=== PATIENT | female | born 1945 | race Caucasian/White ===

== ENCOUNTER 2017-04-25 10:40 | Emergency (ER) | payer MEDICARE, BC ==
[~2017-04-25] VITALS: Ht 165.1 cm; Wt 70.5 kg
[2017-04-25 10:47] VITALS: BP 174/77; PULSE 62; RESP 17; TEMP 98; O2SAT 95
[2017-04-25] MEDS ORDERED: ESTR2TAB PO (11:11)
[2017-04-25] MEDS ORDERED: BUSP5TAB PO (11:11)
[2017-04-25] MEDS ORDERED: MIDO2.5T PO (11:11)
[2017-04-25] MEDS ORDERED: REME15TA PO (11:11)
[2017-04-25] MEDS ORDERED: OXYB5TAB10 PO (11:11)
[2017-04-25] MEDS ORDERED: LEXA10TA PO (11:12)
[2017-04-25] MEDS ORDERED: PANT20 PO (11:12)
[2017-04-25] MEDS ORDERED: SODIUM CHLORIDE 0.9% FLUSH 10 ML FLUSH IVF PRN (11:30)
[2017-04-25] MEDS ORDERED: ASPIRIN 81 MG CHEW TAB PO ONE (11:30)
[2017-04-25 11:54] LABS: WHITE BLOOD COUNT 6.7 TH/MM3 (4.0-11.0)
[2017-04-25 11:55] LABS: AUTOMATED NEUTROPHIL # 4.4 TH/MM3 (1.8-7.7); BASOPHIL # 0.1 TH/MM3 (0-0.2); EOSINOPHIL # 0.1 TH/MM3 (0-0.4); EOSINOPHIL % 1.3 % (0.0-4.0); HEMO FLAGS DIFF FINAL; LYMPH % 25.6 % (9.0-44.0); LYMPHOCYTE # 1.7 TH/MM3 (1.0-4.8); MEAN CORPUSCULAR HEMOGLOBIN 33.4 PG (27.0-34.0); MEAN CORPUSCULAR HGB CONC 33.8 % (32.0-36.0); NEUT % 66.1 % (16.0-70.0); PLATELET COUNT 229 TH/MM3 (150-450); RED BLOOD COUNT 3.84 MIL/MM3 (4.00-5.30); RED CELL DISTRIBUTION WIDTH 12.5 % (11.6-17.2)
[2017-04-25 12:01] LABS: APTT (PATIENT) 24.1 SEC (24.3-30.1); INTERNATIONAL NORMALIZED RATIO 0.9 RATIO
--- NOTE | 2017-04-25 12:13 | PD ---
HPI Chief Complaint: Chest Pain Time Seen by Provider: 11:09 Travel History International Travel<30 days: No Contact w/Intl Traveler<30days: No Traveled to known affect area: No History of Present Illness HPI Patient is a 72-year-old female presents emergency Department with a choking sensation in the middle of her chest started about 0400 this morning, she states it awoke her from a sound sleep lasted about 2 minutes and she felt like she was going to while was occurring. She had some shortness of breath and some mild dizziness and the pain went down her right arm she says afterwards it nearly resolved, she complains only of a mild choking sensation in her chest at this time. Denies a personal history of heart disease and versus high blood pressure and high cholesterol. Nonsmoker. She states that she had a stress test about a year ago which was normal. [facility] Past Medical History Cardiovascular Problems: Yes Diminished Hearing: No Hypertension: Yes Influenza Vaccination: No ?: Not Past Surgical History Hysterectomy: Yes Social History Alcohol Use: No Tobacco Use: No Substance Use: No Allergies-Medications (Allergen,Severity, Reaction): Coded Allergies: acetaminophen (Verified Allergy, Severe, Restlessness, 04/25/17) codeine (Verified Allergy, Severe, Restlessness, 04/25/17) Reported Meds & Prescriptions Reported Meds & Active Scripts Active Reported Protonix (Pantoprazole Sodium) 20 Mg Tab 20 Mg PO DAILY Lexapro (Escitalopram Oxalate) 10 Mg Tab 10 Mg PO DAILY Ditropan (Oxybutynin Chloride) 5 Mg Tab 5 Mg PO DAILY Estradiol 2 Mg Tab 2 Mg PO DAILY Remeron (Mirtazapine) 15 Mg Tab 15 Mg PO HS Buspirone (Buspirone HCl) 5 Mg Tab 5 Mg PO DAILY Midodrine 2.5 Mg Tab 2.5 Mg PO TID Review of Systems Except as stated in HPI: all other systems reviewed are Neg Physical Exam Narrative GENERAL: Well-developed well-nourished no obvious distress SKIN: Focused skin assessment warm/dry. HEAD: Atraumatic. Normocephalic. EYES: Pupils equal and round. No scleral icterus. No injection or drainage. ENT: No nasal bleeding or discharge. Mucous membranes pink and moist. NECK: Trachea midline. No JVD. CARDIOVASCULAR: Regular rate and rhythm. No murmur appreciated. RESPIRATORY: No accessory muscle use. Clear to auscultation. Breath sounds equal bilaterally. GASTROINTESTINAL: Abdomen soft, non-tender, nondistended. Hepatic and splenic margins not palpable. MUSCULOSKELETAL: No obvious deformities. No clubbing. No cyanosis. No edema. NEUROLOGICAL: Awake and alert. No obvious cranial nerve deficits. Motor grossly within normal limits. Normal speech. PSYCHIATRIC: Appropriate mood and affect; insight and judgment normal. Data Data Last Documented VS Vital Signs Date Time Temp Pulse Resp B/P (MAP) Pulse Ox O2 Delivery O2 Flow Rate FiO2 04/25/17 13:43 61 17 154/87 (109) 98 04/25/17 13:42 Room Air 04/25/17 10:47 98.0 Orders Orders Electrocardiogram (04/25/17 11:24) Ckmb (Isoenzyme) Profile (04/25/17 11:24) Complete Blood Count With Diff (04/25/17 11:24) Comprehensive Metabolic Panel (04/25/17 11:24) Magnesium (Mg) (04/25/17 11:24) Prothrombin Time / Inr (Pt) (04/25/17 11:24) Act Partial Throm Time (Ptt) (04/25/17 11:24) Troponin I (04/25/17 11:24) Chest, Single Ap (04/25/17 11:24) Ecg Monitoring (04/25/17 11:24) Iv Access Insert/Monitor (04/25/17 11:24) Oximetry (04/25/17 11:24) Oxygen Administration (04/25/17 11:24) Aspirin Chew (Aspirin Chew) (04/25/17 11:30) Sodium Chloride 0.9% Flush (Ns Flush) (04/25/17 11:30) Labs Laboratory Tests Test 04/25/17 11:32 White Blood Count 6.7 TH/MM3 Red Blood Count 3.84 MIL/MM3 Hemoglobin 12.8 GM/DL Hematocrit 38.0 % Mean Corpuscular Volume 99.0 FL Mean Corpuscular Hemoglobin 33.4 PG Mean Corpuscular Hemoglobin Concent 33.8 % Red Cell Distribution Width 12.5 % Platelet Count 229 TH/MM3 Mean Platelet Volume 8.6 FL Neutrophils (%) (Auto) 66.1 % Lymphocytes (%) (Auto) 25.6 % Monocytes (%) (Auto) 6.0 % Eosinophils (%) (Auto) 1.3 % Basophils (%) (Auto) 1.0 % Neutrophils # (Auto) 4.4 TH/MM3 Lymphocytes # (Auto) 1.7 TH/MM3 Monocytes # (Auto) 0.4 TH/MM3 Eosinophils # (Auto) 0.1 TH/MM3 Basophils # (Auto) 0.1 TH/MM3 CBC Comment DIFF FINAL Differential Comment Prothrombin Time 10.0 SEC Prothromb Time International Ratio 0.9 RATIO Activated Partial Thromboplast Time 24.1 SEC Blood Urea Nitrogen 15 MG/DL Creatinine 0.85 MG/DL Random Glucose 101 MG/DL Total Protein 6.3 GM/DL Albumin 3.0 GM/DL Calcium Level 8.6 MG/DL Magnesium Level 2.1 MG/DL Alkaline Phosphatase 54 U/L Aspartate Amino Transf (AST/SGOT) 14 U/L Alanine Aminotransferase (ALT/SGPT) 9 U/L Total Bilirubin 0.2 MG/DL Sodium Level 139 MEQ/L Potassium Level 4.0 MEQ/L Chloride Level 107 MEQ/L Carbon Dioxide Level 26.8 MEQ/L Anion Gap 5 MEQ/L Estimat Glomerular Filtration Rate 65 ML/MIN Total Creatine Kinase 41 U/L Troponin I LESS THAN 0.02 NG/ML MDM Medical Decision Making Medical Screen Exam Complete: Yes Emergency Medical Condition: Yes Differential Diagnosis She has, [place], anxiety, depression, stress, adjustment disorder. Narrative Course Patient 72-year-old female presents emergency department for evaluation of chest pain which is both typical and atypical in presentation. Initial workup including EKG and troponin negative. Patient states she has been under a lot of stress with family issues recently. She would like to go home. Discussed with her diphtheria of chest pain that I cannot exclude coronary artery disease or critical coronary disease at this juncture and recommended that she stay to have a stress test that she would rather do this with her production floater. She will call her production floater first thing in the morning several follow-up only. I discussed with her at length signs symptoms that would prompt emergent return to the emergency department including any worsening of chest pain or shortness of breath. She verbalizes understanding and agreement to the risks of major adverse cardiac event which is possible within the next 30 days and that he carries with her the risk of and disability. And wishes to go to home. Diagnosis Primary Impression: Chest pain Qualified Codes: R07.9 - Chest pain, unspecified Referrals: Quadrat,Otakar MD Additional Instructions: Follow-up with her primary care physician as soon as possible as well as her production floater as soon as possible. If he do not have a production floater please follow-up with Dr. gomez. If your symptoms return to emergency Department emergently for reevaluation. Disposition: 01 DISCHARGE HOME Condition: Stable Eloy Lackey MD Apr 25, 2017 12:13
[2017-04-25 12:15] LABS: ALT (GPT) 9 U/L (10-53); ANION GAP 5 MEQ/L (5-15); AST (GOT) 14 U/L (15-37); BICARBONATE 26.8 MEQ/L (21.0-32.0); BLOOD UREA NITROGEN 15 MG/DL (7-18); CHLORIDE 107 MEQ/L (98-107); GLOMERULAR FILTRATION RATE 65 ML/MIN (>89); MAGNESIUM 2.1 MG/DL (1.5-2.5); SODIUM (NA) 139 MEQ/L (136-145)
[2017-04-25 12:19] LABS: ALKALINE PHOSPHATASE 54 U/L (45-117); TOTAL BILIRUBIN ADULT 0.2 MG/DL (0.2-1.0)
[2017-04-25 12:21] LABS: CREATINE KINASE 41 U/L (26-192)
[2017-04-25 12:27] VITALS: BP 158/94; PULSE 52; RESP 19; O2SAT 98
--- NOTE | 2017-04-25 13:17 | RADRPT ---
EXAM DATE/TIME: 04/25/2017 11:49 [facility] COMPARISON: No previous studies available for comparison. INDICATIONS : Chest pain. MEDICAL HISTORY : None. SURGICAL HISTORY : None. ENCOUNTER: Initial ACUITY: 1 day PAIN SCORE: 3/10 LOCATION: chest midline. FINDINGS: The examination demonstrates a 3.2 cm mass in the left midlung field. This is highly suspicious for m alignancy. CT imaging of the thorax with contrast is warranted for further assessment. The heart is normal in size. The bony structures are intact. CONCLUSION: 1. 3.2 cm mass in the left upper lobe. This is suspicious for malignancy. CT imaging of the thorax is warranted for further assessment. Julián Hernandez MD on April 25, 2017 at 13:12 Board Certified Radiologist. This report was verified electronically.
[2017-04-25 13:42] VITALS: BP 154/87; PULSE 61; RESP 17; O2SAT 98
[2017-04-25 13:43] VITALS: BP 154/87
--- NOTE | 2017-04-26 12:02 | EKG ---
Date Performed: 04/25/2017 Time Performed: 11:05:47 PTAGE: 72 years EKG: SINUS BRADYCARDIA PROLONGED QT INTERVAL ABNORMAL ECG NO PREVIOUS TRACING DOCTOR: Rory Jonas Interpretating Date/Time 04/26/2017 12:01:02
== END 2017-04-25 14:12 | disposition home or self-care (01) ==
LOC: NEPE 10:40
DX: R07.9 Chest pain, unspecified (principal); R06.02 Shortness of breath; I10 Essential (primary) hypertension; Z79.899 Other long term (current) drug therapy
CPT/HCPCS: 71010; 80053; 82550; 83735; 84484; 85025; 85610; 85730; 93005; 99285